=== PATIENT | female | born 1980 | race Caucasian/White ===

== ENCOUNTER 2017-08-12 13:30 | Inpatient (IN) | payer OTHER ==
[~2017-08-12] VITALS: Ht 160 cm; Wt 3.2 kg
[~2017-08-12 13:30] MED LIST: MACROBID 100 M100 MG PO
[2017-08-24] MEDS ORDERED: VISTARIL25 MG PO (07:21)
== END 2017-08-27 15:56 | DRG 766 ==
LOC: O/R 08-24 06:55 → OB/GYN 08-24 06:55
PROVIDERS: Specialist
PROC: 0UL70ZZ Occlusion of Bilateral Fallopian Tubes, Open Approach (ICD-10-PCS; 2017-08-24)
PROC: 4A033R1 Measurement of Arterial Saturation, Peripheral, Percutaneous Approach (ICD-10-PCS; 2017-08-24)
PROC: 4A1HXCZ Monitoring of Products of Conception, Cardiac Rate, External Approach (ICD-10-PCS; 2017-08-24)
PROC: 10D00Z1 Extraction of Products of Conception, Low, Open Approach (ICD-10-PCS; principal; 2017-08-24 07:00)
DX: O34.211 Maternal care for low transverse scar from previous cesarean delivery (principal); Z3A.39 39 weeks gestation of pregnancy; Z37.0 Single live birth; Z30.2 Encounter for sterilization; O09.523 Supervision of elderly multigravida, third trimester